=== PATIENT | female | born 1985 | race Two or more races ===

== ENCOUNTER → 2021-08-25 | Outpatient (CLI) | payer BC ==
[2021-08-25 08:25] LABS: Urine Bacteria NONE SEEN /hpf (None Seen); Urine Blood TRACE /uL (Negative); Urine Hyaline Cast FEW /lpf (0 - 2); Urine Mucus FEW (None Seen); Urine Specific Gravity 1.029 (1.001-1.035); Urine WBC 2 /hpf (0 - 5)
[2021-08-25 08:26] LABS: Hematocrit 35.7 % (36.0-46.0); Hemoglobin 12.1 g/dL (12.2-16.2); Mean Corpuscular Hgb Conc. 33.8 g/dL (32.0-36.0); Mean Corpuscular Volume 79.9 fL (80.0-100.0); Red Blood Cells 4.47 10^6/uL (4.0-5.20); Red Cell Distribution Width 15.3 % (11.8-14.3); White Blood Cell 7.3 10^3/uL (4.4-10.8)
[2021-08-25 08:29] LABS: Band Neutrophils % (manual) 0; Basophils % (manual) 0 (0.0-2.0); Blast Cells 0; Metamyelocytes % 0; Myelocytes % 0; Promyelocytes % 0; Reactive Lymphocytes 0
[2021-08-25 08:40] LABS: Eosinophils % (manual) 2 (0-7); Lymphocytes % (manual) 23 (10.0-50.0); Monocytes % (manual) 8 (0-12)
[2021-08-25 08:58] LABS: Albumin 3.3 g/dL (3.4-5.0); Potassium 3.9 mmol/L (3.5-5.1)
[2021-08-25 09:09] LABS: BUN/Creatinine Ratio 9.6; Bilirubin, Total 0.3 mg/dL (0.2-1.0); Calcium 8.7 mg/dL (8.5-10.1)
[2021-08-26 06:06] LABS: RPR Non Reactive (Non Reactive)
== END | disposition home or self-care (01) ==
LOC: LAB 07:41
PROVIDERS: ATTEND Student in an Organized Health Care Education/Training Program
DX: Z11.3 Encounter for screening for infections with a predominantly sexual mode of transmission (principal); R73.9 Hyperglycemia, unspecified; I10 Essential (primary) hypertension
CPT/HCPCS: 36415; 80053; 80061; 81001; 83036; 84443; 85007; 85027; 86592; 86703

== ENCOUNTER 2022-01-08 10:23 | Day surgery (SDC) | payer BC ==
[2022-01-05 09:55] LABS: Basophils # (auto) 0 10 ^3/uL (0-0.2); Hemoglobin 12.7 g/dL (12.2-16.2); Mean Corpuscular Hemoglobin 26.4 pg (28.0-32.0); Monocytes # (auto) 0.4 10 ^3/uL (0-1.3); Monocytes % (auto) 5.5 % (0.0-12.0)
[2022-01-05 09:56] LABS: Basophils % (auto) 0.2 % (0.0-2.0); Eosinophils # (auto) 0.2 10 ^3/uL (0-0.8); Eosinophils % (auto) 2.2 % (0.0-7.0); Hematocrit 39.8 % (36.0-46.0); Lymphocytes # (auto) 2.1 10 ^3/uL (0.4-5.4); Lymphocytes % (auto) 30.7 % (10.0-50.0); Mean Corpuscular Hgb Conc. 31.9 g/dL (32.0-36.0); Mean Corpuscular Volume 82.8 fL (80.0-100.0); Neutrophils # (auto) 4.3 10 ^3/uL (1.6-8.6); Neutrophils % (auto) 61.4 % (37.0-80.0); Red Blood Cells 4.81 10^6/uL (4.0-5.20); White Blood Cell 6.9 10^3/uL (4.4-10.8)
[2022-01-05 10:02] LABS: Urine Bacteria NONE SEEN /hpf (None Seen); Urine Blood TRACE /uL (Negative); Urine Specific Gravity 1.013 (1.001-1.035); Urine WBC 1 /hpf (0 - 5)
[2022-01-05 10:19] LABS: INR 0.98 (0.9-1.15); Partial Thromboplastin Time 29.8 sec (24.6-33.4)
[2022-01-05 10:54] LABS: Calcium 8.4 mg/dL (8.5-10.1); Potassium 3.9 mmol/L (3.5-5.1)
[2022-01-05 12:10] LABS: Albumin 3.7 g/dL (3.4-5.0); BUN/Creatinine Ratio 12.8; Bilirubin, Total 0.3 mg/dL (0.2-1.0); Total Protein 7.5 g/dL (6.4-8.2)
[~2022-01-08] VITALS: Ht 162.6 cm; Wt 83.9 kg
[~2022-01-08 10:23] MED LIST: BIOT5TAB3 PO; IBUP400T22 PO; MELA3TAB27 PO
[2022-01-08] MEDS ORDERED: ceFAZolin 1GM/50ML 0 ML IV ONE (12:06)
[2022-01-08] MEDS ORDERED: ceFAZolin 1GM/50ML 100 ML IV ONE (12:43)
[2022-01-08] MEDS ORDERED: LABETALOL HCL 5 MG/ML 4ML SYRINGE IV ONE ×2 (14:00→14:45)
[2022-01-08] MEDS ORDERED: MORPHINE SULFATE INJ 2 MG/ml SYRG ONE (14:46)
[2022-01-08] MEDS ORDERED: MORPHINE SULFATE INJ 2 MG/ml SYRG IV ONE (14:50)
[2022-01-08 15:07] VITALS: BP 153/99
== END 2022-01-08 15:20 | disposition home or self-care (01) ==
LOC: SUR 10:23
PROVIDERS: ATTEND Urology
DX: R31.9 Hematuria, unspecified (principal); N20.0 Calculus of kidney; I10 Essential (primary) hypertension; E66.9 Obesity, unspecified; Z90.49 Acquired absence of other specified parts of digestive tract; Z98.891 History of uterine scar from previous surgery; Z68.32 Body mass index [BMI] 32.0-32.9, adult; Z20.822 Contact with and (suspected) exposure to COVID-19
CPT/HCPCS: 36415; 50590; 80053; 81001; 81025; 84702; 85025; 85610; 85730; 87086; C1769; J0690; J2270; J7030; U0003

== ENCOUNTER 2022-01-08 21:43 | Emergency (ER) | payer BC | END 2022-01-08 23:43 | disposition left against medical advice (07) | LOC: ER 21:45 | DX: R10.9 Unspecified abdominal pain (principal); Z53.21 Procedure and treatment not carried out due to patient leaving prior to being seen by health care provider ==

== ENCOUNTER 2022-01-09 12:51 | Inpatient (IN) | payer BC ==
[~2022-01-09] VITALS: Ht 162.6 cm; Wt 88.6 kg
[2022-01-09 13:52] LABS: Basophils # (auto) 0 10 ^3/uL (0-0.2); Basophils % (auto) 0.2 % (0.0-2.0); Eosinophils # (auto) 0 10 ^3/uL (0-0.8); Monocytes # (auto) 0.8 10 ^3/uL (0-1.3); Monocytes % (auto) 4.1 % (0.0-12.0)
[2022-01-09 13:55] LABS: Hematocrit 41.4 % (36.0-46.0); Hemoglobin 13.6 g/dL (12.2-16.2); Lymphocytes % (auto) 5.3 % (10.0-50.0); Mean Corpuscular Hemoglobin 26.5 pg (28.0-32.0); Mean Corpuscular Hgb Conc. 32.9 g/dL (32.0-36.0); Mean Corpuscular Volume 80.5 fL (80.0-100.0); Neutrophils # (auto) 16.9 10 ^3/uL (1.6-8.6); Neutrophils % (auto) 90.4 % (37.0-80.0); Red Blood Cells 5.14 10^6/uL (4.0-5.20); Red Cell Distribution Width 14.4 % (11.8-14.3); White Blood Cell 18.7 10^3/uL (4.4-10.8)
[2022-01-09 14:07] LABS: Albumin 4.1 g/dL (3.4-5.0); Calcium 9.2 mg/dL (8.5-10.1); Potassium 4.2 mmol/L (3.5-5.1)
[2022-01-09 14:11] LABS: Bilirubin, Total 0.7 mg/dL (0.2-1.0); Total Protein 8.2 g/dL (6.4-8.2)
[2022-01-09 14:28] LABS: Urine Bacteria NONE SEEN /hpf (None Seen); Urine Blood 3+ /uL (Negative); Urine Mucus FEW (None Seen); Urine Specific Gravity 1.034 (1.001-1.035); Urine WBC 2 /hpf (0 - 5)
[2022-01-09] MEDS ORDERED: PIPERACILLIN-TAZOB 3.375GM 100 ML IV ONE (14:45)
[2022-01-09 14:46] LABS: Magnesium 2.3 mg/dL (1.6-2.6)
[2022-01-09] MEDS ORDERED: SODIUM CHLORIDE 0.9% 1,000 ML IV ONE (15:00)
[2022-01-09] MEDS ORDERED: ONDANSETRON HCL 4 MG/2 ML VIAL IV ONE (15:00)
[2022-01-09] MEDS ORDERED: fentaNYL CITRATE 100 MCG/2 ML VL IV ONE (15:00)
[2022-01-09 16:18] LABS: Lactic Acid w/Reflex 2.2 mmol/L (0.4-2.0)
[2022-01-09] MEDS ORDERED: hydrALAZINE HCL 20 MG/ML VL IV PRN (16:30)
[2022-01-09] MEDS ORDERED: ONDANSETRON HCL 4 MG/2 ML VIAL IV PRN (16:30)
[2022-01-09] MEDS ORDERED: LABETALOL HCL 5 MG/ML 4ML SYRINGE IV ONE (16:30)
[2022-01-09] MEDS: SODIUM CHLORIDE 0.9% 1,000 ML IV SCH (17:27)
[2022-01-09] MEDS: MORPHINE SULFATE INJ 2 MG/ml SYRG IV PRN (21:00)
[2022-01-10] VITALS (8 sets, daily range): BP systolic 114–159; BP diastolic 64–106
[2022-01-10] MEDS: SODIUM CHLORIDE 0.9% 1,000 ML IV SCH ×3 (00:43→18:29)
[2022-01-10] MEDS: HYDROmorphone HCL 2 MG/ML VL/or syr IV PRN ×4 (00:45→18:01)
[2022-01-10 05:35] LABS: Basophils # (auto) 0 10 ^3/uL (0-0.2); Basophils % (auto) 0.1 % (0.0-2.0); Eosinophils # (auto) 0 10 ^3/uL (0-0.8); Hemoglobin 11.2 g/dL (12.2-16.2); Neutrophils # (auto) 11.6 10 ^3/uL (1.6-8.6); White Blood Cell 14.3 10^3/uL (4.4-10.8)
[2022-01-10 05:42] LABS: Eosinophils % (auto) 0.1 % (0.0-7.0); Hematocrit 34.9 % (36.0-46.0); Lymphocytes # (auto) 1.5 10 ^3/uL (0.4-5.4); Lymphocytes % (auto) 10.5 % (10.0-50.0); Mean Corpuscular Hemoglobin 26.1 pg (28.0-32.0); Mean Corpuscular Hgb Conc. 32.2 g/dL (32.0-36.0); Mean Corpuscular Volume 81.2 fL (80.0-100.0); Monocytes # (auto) 1.2 10 ^3/uL (0-1.3); Monocytes % (auto) 8.5 % (0.0-12.0); Neutrophils % (auto) 80.8 % (37.0-80.0); Red Cell Distribution Width 14.7 % (11.8-14.3)
[2022-01-10 05:56] LABS: Albumin 3.2 g/dL (3.4-5.0); Calcium 8.1 mg/dL (8.5-10.1)
[2022-01-10 06:00] LABS: BUN/Creatinine Ratio 11.6; Bilirubin, Total 0.4 mg/dL (0.2-1.0); Total Protein 6.1 g/dL (6.4-8.2)
[2022-01-10] MEDS: cefTRIAXone 1GM/50ML D5W 50 ML IV SCH (08:29)
[2022-01-10] MEDS ORDERED: ONDANSETRON HCL 4 MG/2 ML VIAL IV PRN (10:30)
[2022-01-10] MEDS ORDERED: hydrALAZINE HCL 25 MG TAB PO PRN (10:30)
[2022-01-10] MEDS ORDERED: hydrALAZINE HCL 25 MG TAB PO ONE (10:30)
[2022-01-11] VITALS (7 sets, daily range): BP systolic 130–152; BP diastolic 88–104
[2022-01-11] MEDS: SODIUM CHLORIDE 0.9% 1,000 ML IV SCH ×3 (01:08→17:46)
[2022-01-11] MEDS: HYDROmorphone HCL 2 MG/ML VL/or syr IV PRN ×3 (01:28→18:00)
[2022-01-11 06:40] LABS: Basophils # (auto) 0 10 ^3/uL (0-0.2); Basophils % (auto) 0.2 % (0.0-2.0); Eosinophils # (auto) 0.1 10 ^3/uL (0-0.8); Eosinophils % (auto) 1.4 % (0.0-7.0); Hematocrit 33.6 % (36.0-46.0); Hemoglobin 11.3 g/dL (12.2-16.2); Lymphocytes # (auto) 3.1 10 ^3/uL (0.4-5.4); Lymphocytes % (auto) 30.5 % (10.0-50.0); Mean Corpuscular Hemoglobin 27.1 pg (28.0-32.0); Mean Corpuscular Hgb Conc. 33.8 g/dL (32.0-36.0); Mean Corpuscular Volume 80.1 fL (80.0-100.0); Monocytes # (auto) 0.9 10 ^3/uL (0-1.3); Monocytes % (auto) 8.6 % (0.0-12.0); Neutrophils # (auto) 6.1 10 ^3/uL (1.6-8.6); Neutrophils % (auto) 59.3 % (37.0-80.0); Red Blood Cells 4.19 10^6/uL (4.0-5.20); Red Cell Distribution Width 14.1 % (11.8-14.3); White Blood Cell 10.2 10^3/uL (4.4-10.8)
[2022-01-11 06:49] LABS: BUN/Creatinine Ratio 13.3; Potassium 3.8 mmol/L (3.5-5.1)
[2022-01-11] MEDS: cefTRIAXone 1GM/50ML D5W 50 ML IV SCH (10:23)
[2022-01-12] MEDS: SODIUM CHLORIDE 0.9% 1,000 ML IV SCH ×2 (00:49→08:38)
[2022-01-12] MEDS: HYDROmorphone HCL 2 MG/ML VL/or syr IV PRN ×2 (00:49→12:27)
[2022-01-12 05:00] VITALS: BP 138/95
[2022-01-12] MEDS: MORPHINE SULFATE INJ 2 MG/ml SYRG IV PRN (05:59)
[2022-01-12 08:00] VITALS: BP 144/92
[2022-01-12] MEDS ORDERED: LEVO500T31 PO (08:23)
[2022-01-12] MEDS ORDERED: TAM04C PO (08:23)
[2022-01-12] MEDS: cefTRIAXone 1GM/50ML D5W 50 ML IV SCH (08:38)
[2022-01-12 09:02] VITALS: BP 141/96
[2022-01-12 09:23] VITALS: BP 148/106
[2022-01-12 12:27] VITALS: BP 141/96
== END 2022-01-12 12:00 | disposition home or self-care (01) | DRG 871 ==
LOC: ER 12:51 → OVERFLOW 16:35 → CENTRAL 22:15
PROVIDERS: ADMIT Registered Nurse; ATTEND Internal Medicine
DX: A41.9 Sepsis, unspecified organism (principal); N17.0 Acute kidney failure with tubular necrosis; N13.6 Pyonephrosis; T81.40XA Infection following a procedure, unspecified, initial encounter; Z20.822 Contact with and (suspected) exposure to COVID-19; I10 Essential (primary) hypertension; I16.0 Hypertensive urgency; Y83.8 Other surgical procedures as the cause of abnormal reaction of the patient, or of later complication, without mention of misadventure at the time of the procedure; R80.9 Proteinuria, unspecified; Z87.442 Personal history of urinary calculi; Z90.49 Acquired absence of other specified parts of digestive tract; Y92.89 Other specified places as the place of occurrence of the external cause
CPT/HCPCS: 36415; 71045; 74018; 74176; 80048; 80053; 81001; 83605; 83690; 83735; 85025; 87040; 87081; 87086; 93005; 96365; 96375; G0378; J0696; J2405; J2543; J3490

== ENCOUNTER → 2022-02-12 | Outpatient (CLI) | payer BC ==
[~2022-02-12] MED LIST changes: -BIOT5TAB3 PO; +LEVO500T31 PO; -MELA3TAB27 PO; +TAM04C PO
== END | disposition home or self-care (01) ==
LOC: LAB 16:00
PROVIDERS: ATTEND Obstetrics & Gynecology Obstetrics
DX: R87.613 High grade squamous intraepithelial lesion on cytologic smear of cervix (HGSIL) (principal)
CPT/HCPCS: 88302

== ENCOUNTER 2022-03-23 06:18 | Day surgery (SDC) | payer BC ==
[2022-03-20 10:51] LABS: Basophils # (auto) 0 10 ^3/uL (0-0.2); Basophils % (auto) 0.2 % (0.0-2.0); Eosinophils # (auto) 0.1 10 ^3/uL (0-0.8); Eosinophils % (auto) 1.6 % (0.0-7.0); Hematocrit 40.3 % (36.0-46.0); Hemoglobin 13.1 g/dL (12.2-16.2); Lymphocytes # (auto) 2.1 10 ^3/uL (0.4-5.4); Lymphocytes % (auto) 23.5 % (10.0-50.0); Mean Corpuscular Hgb Conc. 32.5 g/dL (32.0-36.0); Mean Corpuscular Volume 82.9 fL (80.0-100.0); Monocytes # (auto) 0.3 10 ^3/uL (0-1.3); Monocytes % (auto) 3.8 % (0.0-12.0); Neutrophils # (auto) 6.3 10 ^3/uL (1.6-8.6); Neutrophils % (auto) 70.9 % (37.0-80.0); Red Blood Cells 4.86 10^6/uL (4.0-5.20); Red Cell Distribution Width 14.6 % (11.8-14.3); White Blood Cell 8.9 10^3/uL (4.4-10.8)
[2022-03-20 11:09] LABS: INR 0.99 (0.9-1.15); Partial Thromboplastin Time 30.4 sec (24.6-33.4)
[2022-03-20 12:00] LABS: Albumin 3.5 g/dL (3.4-5.0); BUN/Creatinine Ratio 15.3; Bilirubin, Total 0.4 mg/dL (0.2-1.0); Calcium 8.8 mg/dL (8.5-10.1); Potassium 4.2 mmol/L (3.5-5.1); Total Protein 7.5 g/dL (6.4-8.2)
[2022-03-20 13:54] LABS: Urine Blood Trace /uL (Negative); Urine Specific Gravity 1.026 (1.001-1.035)
[~2022-03-23] VITALS: Ht 162.6 cm; Wt 83.9 kg
[2022-03-23] MEDS ORDERED: KETAMINE 50mg/ML 10ml Vial (500mg/10ml) IV ONE (06:19)
[2022-03-23] MEDS ORDERED: FERRIC SUBSULFATE TOPICAL SOLN 30 ML BTL ONE (06:37)
[2022-03-23] MEDS ORDERED: IODINE STRONG 5% SOLN 14ML ONE (06:38)
[2022-03-23] MEDS ORDERED: PROPOFOL 10 MG/ML 20 ML IV ONE (07:28)
[2022-03-23] MEDS ORDERED: KETOROLAC TROMETH 30 MG/ML 1ML VIAL ONE (07:28)
[2022-03-23] MEDS ORDERED: GLYCOPYRROLATE 0.2 MG/ML 1ML VIAL ONE (07:28)
[2022-03-23] MEDS ORDERED: ONDANSETRON HCL 4 MG/2 ML VIAL ONE (07:28)
[2022-03-23] MEDS ORDERED: DexAMETHasone SOD PHOS 10MG/1ML VIAL INJ ONE (07:28)
[2022-03-23] MEDS ORDERED: LIDOCAINE 2% (LOCAL ANESTH.) PF 5ml SDV ONE (07:28)
[2022-03-23] MEDS ORDERED: ESMOLOL HCL 10 ML IV ONE (07:46)
[2022-03-23 08:51] VITALS: BP 143/87
== END 2022-03-23 09:20 | disposition home or self-care (01) ==
LOC: SUR 06:18
PROVIDERS: ATTEND Obstetrics & Gynecology Obstetrics
DX: D06.9 Carcinoma in situ of cervix, unspecified (principal); R87.810 Cervical high risk human papillomavirus (HPV) DNA test positive; I10 Essential (primary) hypertension; Z79.899 Other long term (current) drug therapy; Z90.49 Acquired absence of other specified parts of digestive tract; Z20.822 Contact with and (suspected) exposure to COVID-19
CPT/HCPCS: 36415; 57522; 80053; 81001; 81025; 84702; 85025; 85610; 85730; 86850; 86900; 86901; 88305; 88342; J1100; J1885; J2001; J2405; J2704; U0003